=== PATIENT | female | born 1990 ===

== ENCOUNTER → 2023-04-21 10:11 | Outpatient (CLI) | payer OTHER ==
[2023-04-21 11:00] LABS: URINE APPEARANCE Clear; URINE BILIRRUBIN Negative (NEGATIVE); URINE BLOOD Negative; URINE COLOR Yellow; URINE GLUCOSE Negative (NEGATIVE); URINE LEUKOCYTE Negative; URINE NITRATE Negative; URINE PROTEIN Negative (NEGATIVE); URINE UROBILINOGEN 0.2 E.U./dl
[2023-04-21 11:03] LABS: HEMATOCRIT 39.1 % (36.0-45.00); HEMOGLOBIN 13.3 g/dL (12.0-15.00); MEAN CELL VOLUME 90.3 fL (80.00-100.00); MEAN CORPUSCULAR HEMOGLOBIN 30.7 pg (27.00-32.0); PLATELET COUNT 278 K/uL (150-450); RED BLOOD COUNT 4.33 M/uL (4.00-6.00)
[2023-04-21 11:06] LABS: URINE BACTERIA 7.5 uL (0.0-1933); URINE EPITHELIAL CELLS 5.5 uL (0.0-38.8); URINE RBC 2.1 uL (0.0-20.8)
[2023-04-21 11:25] LABS: PARTIAL THROMBOPLASTIN TIME 24.1 SECONDS (22.0-34.0); PROTHROMBIN TIME 10.5 SECONDS (9.0-11.5)
[2023-04-21 11:35] LABS: ALBUMIN 4.2 gm/dL (3.4-5.0); BILIRUBIN TOTAL 0.47 mg/dL (0.3-1.2); CALCIUM 9.7 mg/dL (8.5-10.1); CREATININE SERUM 0.65 mg/dL (0.55-1.02); GFR 105.63; GLOBULINA 4.2 G/DL (2.4-3.5); POTASSIUM 4.11 mEq/L (3.5-5.1); TOTAL PROTEIN 8.4 gm/dL (6.4-8.2)
== END | disposition home or self-care (01) ==
LOC: LAB 10:11
PROVIDERS: ATTEND Surgery
DX: Z20.822 Contact with and (suspected) exposure to COVID-19 (principal); I10 Essential (primary) hypertension; D64.9 Anemia, unspecified; D68.9 Coagulation defect, unspecified; N39.0 Urinary tract infection, site not specified; E11.00 Type 2 diabetes mellitus with hyperosmolarity without nonketotic hyperglycemic-hyperosmolar coma (NKHHC); E04.1 Nontoxic single thyroid nodule; E78.2 Mixed hyperlipidemia; N91.2 Amenorrhea, unspecified

== ENCOUNTER 2023-04-25 06:13 | Day surgery (SDC) | payer OTHER ==
[~2023-04-25] VITALS: Ht 157.5 cm; Wt 61.2 kg
== END 2023-04-25 12:55 | disposition home or self-care (01) ==
LOC: CIR.AMB 06:13
PROVIDERS: ATTEND Surgery
DX: D24.1 Benign neoplasm of right breast (principal); D48.61 Neoplasm of uncertain behavior of right breast; Z20.822 Contact with and (suspected) exposure to COVID-19